=== PATIENT | female | born 1965 | race Caucasian/White ===

== ENCOUNTER 2018-11-30 13:51 | Emergency (ER) | payer BC, OTHER ==
--- OUTSIDE RECORDS SUMMARY | 2018-11-30 13:56 | XMS REPORT ---
:1965 [facility] [address] [place] [address] Care Team Providers Name Role Phone Unavailable Unavailable Unavailable Problems This patient has no known problems. Allergies, Adverse Reactions, Alerts This patient has no known allergies or adverse reactions. Medications This patient has no known medications.
[2018-11-30 15:56] LABS: Absolute Lymphocytes (CBC) 1.9 K/uL (0.7-4.9); Absolute Monocytes 0.7 K/uL (0.1-1.3); Absolute Neutrophil 6.1 K/uL (1.8-8.0); Basophils % 0.6 % (0-1.3); Hematocrit 41.4 % (36.0-45.0); Lymphocytes % 21.6 % (15.3-44.8); MPV 8.4 fL (7.6-11.3); Monocytes % 8.1 % (3.3-12.3); RBC Red Blood Cell Count 4.47 M/uL (3.86-4.86)
--- NOTE | 2018-11-30 16:00 | RAD REPORT ---
EXAM DESCRIPTION: CT - Head Brain Wo Cont - 11/30/2018 3:52 pm CLINICAL HISTORY: Weakness, dizziness COMPARISON: None. TECHNIQUE: Axial 5 mm thick images of the head were obtained without IV contrast. All CT scans are performed using dose optimization technique as appropriate and may include automated exposure control or mA/KV adjustment according to patient size. FINDINGS: No intracranial hemorrhage, mass, edema or shift of mid-line structures. No cortical edema or sulcal effacement. No acute cortical based infarction identified. No abnormal extra-axial fluid c ollections. Ventricles are normal size. Patient does appear to have some bifrontal volume loss. Mastoid air cells and visualized portions of the paranasal sinuses are clear. No acute bony findings. IMPRESSION: Negative non-contrast CT head examination for acute finding.
[2018-11-30 16:07] LABS: Protime INR 0.94
[2018-11-30 16:17] LABS: ALT/SGPT 12 U/L (12-78); AST/SGOT 8 U/L (15-37); Albumin 3.5 g/dL (3.4-5.0); Alkaline Phosphatase 87 U/L (45-117); BUN Blood Urea Nitrogen 11 mg/dL (7-18); Bicarbonate 29 mmol/L (21-32); Bilirubin Direct 0.1 mg/dL (0-0.2); Bilirubin Total 0.2 mg/dL (0.2-1.0); Glucose Level 111 mg/dL (74-106); Magnesium 2.1 mg/dL (1.8-2.4); NT PRO-BNP 76 pg/mL (<125); Potassium 4.1 mmol/L (3.5-5.1); Protein, Total 7.6 g/dL (6.4-8.2); Sodium Level 140 mmol/L (136-145); Troponin (Emerg Dept Use Only) < 0.02 ng/mL (0.0-0.045)
[2018-11-30] MEDS ORDERED: NA CHLORIDE 0.9% 1,000 ML ONE (16:22)
[2018-11-30] MEDS ORDERED: MECLIZINE HCL 12.5 MG TAB ONE (16:22)
--- NOTE | 2018-11-30 17:18 | RAD REPORT ---
EXAM DESCRIPTION: RAD - Chest Single View - 11/30/2018 4:55 pm CLINICAL HISTORY: Dizziness, shortness of breath COMPARISON: None. TECHNIQUE: AP portable chest image was obtained 1646 hours . FINDINGS: Lungs are clear. Heart and vasculature are normal. Hilar regions are not outside of normal range. No measurable pleural effusion and no pneumothorax. No acute bony abnormality seen. No acute aortic findings suspected. IMPRESSION: No acute cardiopulmonary process.
--- NOTE | 2018-11-30 17:29 | EDPHYS ---
Physician Documentation [facility] Name: Asia Rodriguez Age: 53 yrs Sex: Female : 1965 Arrival Date: 11/30/2018 Time: 13:55 Bed 23 Private MD: ED Physician Torrey Romo HPI: 11/30 15:25 This 53 yrs old Female presents to ER via Ambulatory with complaints of cp Dizziness. 15:25 The patient presents with dizziness, feeling faint, lightheadedness. Onset: The cp symptoms/episode began/occurred this morning, at 11:30. Context: occurred while the patient was physician's office. just prior to the episode the patient experienced no apparent symptoms. Patient's baseline: Neuro: alert and fully oriented, Motor: no deficits, Ambulation: walks without assistance, Speech: normal. 15:25 Severity of symptoms: in the emergency department the symptoms have improved mildly. cp Historical: - Allergies: 14:06 Cipro; ss 14:06 Sulfa (Sulfonamide Antibiotics); ss - PMHx: 14:06 Asthma; Bipolar disorder; Hypothyroidism; ss - PSHx: 14:06 Cholecystectomy; ; lap band; R knee; ss - Immunization history:: Adult Immunizations up to date. - Social history:: Smoking status: Patient/guardian denies using tobacco. - Ebola Screening: : Patient denies exposure to infectious person Patient denies travel to an Ebola-affected area in the 21 days before illness onset. ROS: 15:30 Constitutional: Negative for body aches, chills, fever, poor PO intake. cp 15:30 Eyes: Negative for injury, pain, redness, and discharge. cp 15:30 ENT: Negative for drainage from ear(s), ear pain, sore throat, difficulty swallowing, difficulty handling secretions. 15:30 Neck: Negative for pain with movement, pain at rest, stiffness, tenderness. 15:30 Cardiovascular: Negative for chest pain, edema, palpitations. 15:30 Respiratory: Negative for cough, shortness of breath, wheezing. 15:30 Abdomen/GI: Negative for abdominal pain, nausea, vomiting, and diarrhea, constipation. 15:30 Back: Negative for pain at rest, pain with movement, radiated pain. 15:30 : Negative for urinary symptoms. 15:30 Skin: Negative for cellulitis, rash. 15:30 Neuro: Positive for dizziness, near syncope, Negative for altered mental status, headache, speech changes, visual changes, weakness. 15:30 All other systems are negative. Exam: 15:40 Head/Face: Normocephalic, atraumatic. cp 15:40 Constitutional: The patient appears in no acute distress, alert, awake, non-diaphoretic, non-toxic, well developed, well nourished. 15:40 Eyes: Periorbital structures: appear normal, Pupils: equal, round, and reactive to light and accomodation, Extraocular movements: intact throughout, Conjunctiva: normal, no exudate, no injection, Sclera: no appreciated abnormality, Lids and lashes: appear normal, bilaterally. 15:40 ENT: External ear(s): are unremarkable, Ear canal(s): are normal, clear, TM's: bulging, is not appreciated, bilaterally, dullness, bilaterally, erythema, is not appreciated, bilaterally, Nose: is normal, Mouth: Lips: moist, Oral mucosa: pink and intact, moist, Posterior pharynx: is normal, airway is patent, no erythema, no exudate, Voice: is normal. 15:40 Neck: ROM/movement: is normal, is supple, without pain, no range of motions cp limitations, no meningismus, no nuchal rigidity. 15:40 Chest/axilla: Inspection: normal, Palpation: is normal, no crepitus, no tenderness. 15:40 Cardiovascular: Rate: normal, Rhythm: regular, Edema: is not appreciated, JVD: is not appreciated. 15:40 Respiratory: the patient does not display signs of respiratory distress, Respirations: normal, no use of accessory muscles, no retractions, no splinting, no tachypnea, labored breathing, is not present, Breath sounds: are clear throughout, no decreased breath sounds, no stridor, no wheezing. 15:40 Abdomen/GI: Inspection: abdomen appears normal, Palpation: abdomen is soft and non-tender, in all quadrants. 15:40 Skin: cellulitis, is not appreciated, no rash present. 15:40 Neuro: Orientation: to person, place \\T\\ time. Mentation: is normal, Cerebellar function: Romberg testing is negative, heel to stewart testing is normal, Motor: is normal, Sensation: is normal. 16:10 ECG was reviewed by the Attending Physician. Vital Signs: 16:00 BP 111 / 57; Pulse 80; Resp 18; Pulse Ox 100% on R/A; jp3 16:02 BP 109 / 66 RA Sitting (auto/lg); Pulse 76; Pulse Ox 100% on R/A; jp3 16:04 BP 160 / 76 RA Standing (auto/lg); Pulse 78; Pulse Ox 100% on R/A; jp3 16:06 BP 116 / 77; Pulse 88; Resp 15; Temp 98.3(TE); Pulse Ox 98% on R/A; Weight 106.59 kg; jp3 Height 5 ft. 3 in. (160.02 cm); Pain 0/10; 16:08 BP 105 / 73; jp3 16:12 Pulse 88; jp3 17:30 BP 116 / 76; Pulse 78; Resp 18; Pulse Ox 99% on R/A; Pain 0/10; em 16:06 Body Mass Index 41.63 (106.59 kg, 160.02 cm) jp3 16:00 pt reported "feeling slightly light-headed" jp3 16:02 Pt reported "feeling about the same as laying down" jp3 16:04 pt reported "feeling VERY light-headed" 3 MDM: 15:08 Patient medically screened. cp 16:00 Differential diagnosis: cardiac arrhythmia, generalized weakness, GI bleed, cp hypovolemia, idiopathic dizziness, near-syncope, syncope, TIA. 17:28 Data reviewed: vital signs, nurses notes, lab test result(s), EKG, radiologic studies, cp CT scan, plain films. 17:28 Test interpretation: by ED physician or midlevel provider: ECG, plain radiologic cp studies. Counseling: I had a detailed discussion with the patient and/or guardian regarding: the historical points, exam findings, and any diagnostic results supporting the discharge/admit diagnosis, lab results, radiology results, the need for outpatient follow up, a family practitioner, to return to the emergency department if symptoms worsen or persist or if there are any questions or concerns that arise at home. Response to treatment: the patient's symptoms have markedly improved after treatment, VSS. Patient reports symptoms markedly improved after IV fluids and meds. Will discharge to home for continued monitoring. 11/30 15:22 Order name: Basic Metabolic Panel; Complete Time: 16:20 cp 11/30 16:20 Interpretation: Normal except: GLUC 111; GFR 63; CA 8.3. 11/30 15:22 Order name: CBC with Diff; Complete Time: 16:06 cp 11/30 16:49 Interpretation: Reviewed. 11/30 15:22 Order name: LFT's; Complete Time: 16:20 cp 11/30 16:20 Interpretation: Normal except: AST 8; GLOB 4.1; A/G 0.9. cp 11/30 15:22 Order name: Magnesium; Complete Time: 16:20 cp 11/30 16:49 Interpretation: Reviewed. cp 11/30 15:22 Order name: NT PRO-BNP; Complete Time: 16:20 cp 11/30 15:22 Order name: PT-INR; Complete Time: 16:20 11/30 15:22 Order name: Troponin (emerg Dept Use Only); Complete Time: 16:20 11/30 16:50 Interpretation: Reviewed. 11/30 15:22 Order name: XRAY Chest (1 view); Complete Time: 17:28 11/30 17:28 Interpretation: Report review. 11/30 15:22 Order name: CT Head Brain wo Cont; Complete Time: 16:06 11/30 16:07 Interpretation: Report reviewed. 11/30 16:25 Order name: Urine Dipstick--Ancillary (enter results) 11/30 16:29 Order name: Urine --Ancillary (enter results) 11/30 14:12 Order name: Glucose Level; Complete Time: 14:12 11/30 15:22 Order name: Orthostatics; Complete Time: 16:14 11/30 15:22 Order name: EKG; Complete Time: 15:23 11/30 15:22 Order name: Cardiac monitoring; Complete Time: 15:59 11/30 15:22 Order name: EKG - Nurse/Tech; Complete Time: 16:14 11/30 15:22 Order name: IV Saline Lock; Complete Time: 15:59 11/30 15:22 Order name: Labs collected and sent; Complete Time: 15:59 11/30 15:22 Order name: O2 Per Protocol; Complete Time: 15:59 11/30 15:22 Order name: O2 Sat Monitoring; Complete Time: 15:59 11/30 15:22 Order name: Urine Dipstick-Ancillary (obtain specimen); Complete Time: 17:17 cp 11/30 15:22 Order name: Urine Test (obtain specimen); Complete Time: 17:17 cp EC:10 Rate is 72 beats/min. Rhythm is regular. NV interval is normal. QRS interval is normal. cp QT interval is normal. Interpreted by me. Reviewed by me. Administered Medications: 16:21 Not Given (Physician Discretion): NS 0.9% 500 ml IV at bolus once cp 16:22 Not Given (Physician Discretion): NS 0.9% 1000 ml IV at 125 ml/hr continuous cp 16:32 Drug: Meclizine 25 mg Route: PO; em 18:10 Follow up: Response: No adverse reaction; Marked relief of symptoms em 16:36 CANCELLED (Physician Discretion): NS 0.45 % 1000 ml IV at bolus once em 16:36 Drug: NS 0.9% 1000 ml Route: IV; Rate: 1 bolus; Site: left forearm; em 18:10 Follow up: IV Status: Completed infusion; IV Intake: 1000ml em Point of Care Testing: Blood Glucose: 14:11 Blood Glucose: 127 mg/dL; ss Ranges: Critical Glucose Levels:Adult <50 mg/dl or >400 mg/dl <40 mg/dl or >180 mg/dl Disposition: 18:22 Co-signature as Attending Physician, Torrey Romo MD. rn Disposition: 11/30/18 17:29 Discharged to Home. Impression: Dizziness and giddiness. - Condition is Stable. - Discharge Instructions: Dizziness. - Prescriptions for Meclizine 25 mg Oral Tablet - take 1 tablet by ORAL route every 8 hours As needed; 30 tablet. - Medication Reconciliation Form, Thank You Letter, Antibiotic Education, Prescription Opioid Use form. - Follow up: Private Physician; When: 2 - 3 days; Reason: Recheck today's complaints. - Problem is new. - Symptoms have improved. Signatures: Dispatcher [employer] Keegan Ledezma, LEGAL INSTRUCTOR LEGAL INSTRUCTOR Torrey Caldwell MD MD rn Smirch, Shelby, RN RN ss Trista, Juan, JAYA [place] cp Corrections: (The following items were deleted from the chart) 15:59 15:23 Chest Single View+RAD.RAD.BRZ ordered. EDMS EDMS 16:20 16:20 Normal except: GLUC 111; GFR 63. cp cp 16:36 16:22 NS 0.45 % 1000 ml IV at bolus once ordered. cp em 18:11 17:29 11/30/2018 17:29 Discharged to Home. Impression: Dizziness and giddiness. em Condition is Stable. Forms are Medication Reconciliation Form, Thank You Letter, Antibiotic Education, Prescription Opioid Use. Follow up: Private Physician; When: 2 - 3 days; Reason: Recheck today's complaints. Problem is new. Symptoms have improved. cp
--- NOTE | 2018-11-30 17:29 | ER ---
Nurse's Notes [facility] Name: Asia Rodriguez Age: 53 yrs Sex: Female : 1965 Arrival Date: 11/30/2018 Time: 13:55 Bed 23 Private MD: Diagnosis: Dizziness and giddiness Presentation: 11/30 14:04 Presenting complaint: Patient states: Dizziness that began at 1130 today. Pt reports ss that it mildly improved, since onset. Pt also reports that this has happened in the past once before, but she has not gotten it checked out as of yet. Transition of care: patient was not received from another setting of care. Onset of symptoms was November 30, 2018 at 11:30. Risk Assessment: Do you want to hurt yourself or someone else? Patient reports no desire to harm self or others. Initial Sepsis Screen: Does the patient meet any 2 criteria? No. Patient's initial sepsis screen is negative. Does the patient have a suspected source of infection? No. Patient's initial sepsis screen is negative. Care prior to arrival: None. 14:04 Method Of Arrival: Ambulatory ss 14:12 Acuity: CECILIO 3 ss Historical: - Allergies: 14:06 Cipro; ss 14:06 Sulfa (Sulfonamide Antibiotics); ss - PMHx: 14:06 Asthma; Bipolar disorder; Hypothyroidism; ss - PSHx: 14:06 Cholecystectomy; ; lap band; R knee; ss - Immunization history:: Adult Immunizations up to date. - Social history:: Smoking status: Patient/guardian denies using tobacco. - Ebola Screening: : Patient denies exposure to infectious person Patient denies travel to an Ebola-affected area in the 21 days before illness onset. Screenin:30 Abuse screen: Denies threats or abuse. Nutritional screening: No deficits noted. em Tuberculosis screening: No symptoms or risk factors identified. Fall Risk None identified. Assessment: 15:30 General: Appears in no apparent distress. uncomfortable, Behavior is calm, cooperative, em Denies fever. Pain: Denies pain. Neuro: Level of Consciousness is awake, alert, obeys commands, Oriented to person, place, time, situation, Moves all extremities. Full function Gait is steady, Speech is normal, Facial symmetry appears normal, Pupils are PERRLA, Intact Reports dizziness, headache Denies numbness. Cardiovascular: Capillary refill < 3 seconds Patient's skin is warm and dry. Respiratory: Airway is patent Respiratory effort is even, unlabored, Respiratory pattern is regular, symmetrical. GI: Abdomen is round Patient currently denies nausea, vomiting. EENT: Denies difficulty swallowing. Derm: Skin is intact, is healthy with good turgor, Skin is pink, warm \\T\\ dry. Musculoskeletal: Range of motion: intact in all extremities. 15:30 Reassessment: I agree with assessment completed by Keegan Guerrero LVN . [email or web address] 16:30 Reassessment: Patient appears in no apparent distress at this time. Patient and/or em family updated on plan of care and expected duration. Pain level reassessed. Patient is alert, oriented x 3, equal unlabored respirations, skin warm/dry/pink. 17:30 Reassessment: Patient appears in no apparent distress at this time. Patient and/or em family updated on plan of care and expected duration. Pain level reassessed. Patient is alert, oriented x 3, equal unlabored respirations, skin warm/dry/pink. Patient denies pain at this time. Patient states feeling better. Patient states symptoms have improved. Vital Signs: 16:00 BP 111 / 57; Pulse 80; Resp 18; Pulse Ox 100% on R/A; jp3 16:02 BP 109 / 66 RA Sitting (auto/lg); Pulse 76; Pulse Ox 100% on R/A; jp3 16:04 BP 160 / 76 RA Standing (auto/lg); Pulse 78; Pulse Ox 100% on R/A; jp3 16:06 BP 116 / 77; Pulse 88; Resp 15; Temp 98.3(TE); Pulse Ox 98% on R/A; Weight 106.59 kg; jp3 Height 5 ft. 3 in. (160.02 cm); Pain 0/10; 16:08 BP 105 / 73; jp3 16:12 Pulse 88; jp3 17:30 BP 116 / 76; Pulse 78; Resp 18; Pulse Ox 99% on R/A; Pain 0/10; em 16:06 Body Mass Index 41.63 (106.59 kg, 160.02 cm) jp3 16:00 pt reported "feeling slightly light-headed" jp3 16:02 Pt reported "feeling about the same as laying down" jp3 16:04 pt reported "feeling VERY light-headed" jp3 ED Course: 13:55 Patient arrived in ED. mr 14:06 Arm band placed on right wrist. ss 14:12 Triage completed. ss 15:08 Juan Weston PA is PHCP. cp 15:08 Torrey Romo MD is Attending Physician. cp 15:30 Keegan Guerrero LVN is Primary Nurse. em 15:30 Placed in gown. Bed in low position. Call light in reach. Side rails up X 1. Warm jp3 blanket given. Pillow given. monitoring and evaluation advisor on. Pulse ox on. NIBP on. 15:30 Missed attempt(s): 22 gauge in right forearm. Bleeding controlled, band aid applied, jp3 catheter tip intact. 15:[address] via wheelchair. jg6 15:45 Initial lab(s) drawn, by me, sent to lab. Inserted saline lock: 24 gauge in left jp3 forearm, using aseptic technique. Blood collected. 15:46 CT completed. Patient tolerated procedure well. Patient moved to CT via wheelchair. jg6 Patient moved back from CT. 15:50 CT Head Brain wo Cont In Process Unspecified. EDMS 15:59 Troponin (emerg Dept Use Only) Sent. jp3 15:59 Basic Metabolic Panel Sent. jp3 15:59 PT-INR Sent. jp3 15:59 NT PRO-BNP Sent. jp3 15:59 Magnesium Sent. jp3 16:00 LFT's Sent. jp3 16:00 CBC with Diff Sent. jp3 16:56 XRAY Chest (1 view) In Process Unspecified. EDMS 18:10 No provider procedures requiring assistance completed. IV discontinued, intact, em bleeding controlled, No redness/swelling at site. Pressure dressing applied. Administered Medications: 16:21 Not Given (Physician Discretion): NS 0.9% 500 ml IV at bolus once cp 16:22 Not Given (Physician Discretion): NS 0.9% 1000 ml IV at 125 ml/hr continuous cp 16:32 Drug: Meclizine 25 mg Route: PO; em 18:10 Follow up: Response: No adverse reaction; Marked relief of symptoms em 16:36 CANCELLED (Physician Discretion): NS 0.45 % 1000 ml IV at bolus once em 16:36 Drug: NS 0.9% 1000 ml Route: IV; Rate: 1 bolus; Site: left forearm; em 18:10 Follow up: IV Status: Completed infusion; IV Intake: 1000ml em Point of Care Testing: Blood Glucose: 14:11 Blood Glucose: 127 mg/dL; ss Ranges: Intake: 18:10 IV: 1000ml; Total: 1000ml. em Outcome: 17:29 Discharge ordered by . cp 18:10 Discharged to home ambulatory, with family. em 18:10 Condition: good 18:10 Discharge instructions given to patient, family, Instructed on discharge instructions, follow up and referral plans. medication usage, Demonstrated understanding of instructions, follow-up care, medications, Prescriptions given X 1. 18:11 Patient left the ED. em Signatures: Dispatcher [employer] EDPR Juarez Bharati mr Guerrero, Keegan, MANAGER MARKETING COMMUNICATIONS MANAGER MARKETING COMMUNICATIONS em Cora Alcaraz, SHYANNE RN [email or web address] Naida Phelan RN RN ss Page, Corey, PA PA cp Pisarski, Jacob jp3 Nunu [email or web address] Corrections: (The following items were deleted from the chart) 19:39 14:06 BP 116 / 77; Pulse 88bpm; Resp 15bpm; Pulse Ox 98% RA; Temp 98.3F Temporal; jp3 106.59 kg; Height 5 ft. 3 in.; BMI: 41.6; Pain 0/10; ss 19:39 14:08 BP 105 / 73; Right Arm; ss jp3 19:39 14:12 Pulse 88bpm; ss jp3 19:39 14:00 BP 111 / 57; Pulse 80bpm; Resp 18bpm; Pulse Ox 100% RA; pt reported "feeling jp3 slightly light-headed"; jp3 19:39 14:02 BP 109 / 66 Sitting Auto R Arm Large; Pulse 76bpm; Pulse Ox 100% RA; Pt reported jp3 "feeling about the same as laying down"; jp3 19:39 14:04 BP 111 / 76 Standing Auto R Arm Large; Pulse 78bpm; Pulse Ox 100% RA; pt reported jp3 "feeling VERY light-headed"; jp3
[2018-11-30 17:37] LABS: Urine Blood NEGATIVE (NEG); Urine Glucose NEGATIVE (NEG); Urine Protein NEGATIVE (NEG)
== END 2018-11-30 18:11 | disposition home or self-care (01) ==
LOC: ER 13:51
DX: R42 Dizziness and giddiness (principal); J45.909 Unspecified asthma, uncomplicated; E03.9 Hypothyroidism, unspecified; F31.9 Bipolar disorder, unspecified; Z88.1 Allergy status to other antibiotic agents; Z88.2 Allergy status to sulfonamides
CPT/HCPCS: 36415; 70450; 71045; 80048; 80076; 81003; 81025; 82962; 83735; 83880; 84484; 85025; 85610; 93005; 96360; 96361; 99285; J7030